=== PATIENT | male | born 1940 | race Caucasian/White ===

== ENCOUNTER 2019-10-05 21:06 | Emergency (ER) | payer SELFPAY ==
[~2019-10-05] VITALS: Ht 172.7 cm; Wt 81.6 kg
--- NOTE | 2019-10-05 21:49 | NUR ---
PT KENTON PICKED UP SLEEPING OUTSIDE A [facility] ST[facility], TO ER BED 11 A//OX4 VSS
--- NOTE | 2019-10-05 23:00 | NUR ---
PT REFUSED BLOOD DRAW
--- NOTE | 2019-10-06 00:21 | NUR ---
PT READY FOR DISCHARGE, PER PT, UNABLE TO STAND UP
--- NOTE | 2019-10-06 03:30 | NUR ---
PT REMAINS IN BED SLEEPING VSS
--- NOTE | 2019-10-06 05:56 | NUR ---
Patient discharged to home in stable condition. Written and verbal after care instructions given. Patient verbalizes understanding of instruction.
[2019-10-06 05:57] VITALS: BP 138/62
== END 2019-10-06 05:57 | disposition home or self-care (01) ==
LOC: ER 21:07
DX: F10.129 Alcohol abuse with intoxication, unspecified (principal); R41.82 Altered mental status, unspecified; Y90.9 Presence of alcohol in blood, level not specified
CPT/HCPCS: 70450-TC; 82962-TC